=== PATIENT | male | born 1955 ===

== ENCOUNTER 2017-07-21 03:04 | Emergency (ER) | payer MEDICAID ==
[2017-07-21 03:04] VITALS: BMI 34.5
[2017-07-21 03:33] VITALS: BP 141/66; PULSE 82; RESP 18; TEMP 98.3; O2SAT 98
--- NOTE | 2017-07-21 05:03 | ED PDOC ---
HPI: Psych/Substance Abuse Time Seen by Provider: 07/21/17 04:36 Chief Complaint (Nursing): Psychiatric Evaluation Chief Complaint (Provider): Psych Eval History Per: Patient, EMS History/Exam Limitations: no limitations Current Symptoms Are (Timing): Still Present Additional Complaint(s): 61 yo male, brought in by EMS, with a history of depression, hypertension, diabetes, and elevated cholesterol, presents to the ED for a psych evaluation of possible suicidal ideation. According to the patient, he was caught cheating on his last August, and since then they have had an estranged relationship although they still reside in the same home. Patient admits that when he was first caught, he attempted to to cut his throat, but after he made a small cut he was too scared to go through with the suicide attempt. He was then evaluated at that time and was put on medication for his depression. Today, his approached him stating that she wanted a divorce because she "didn't want to live like this anymore". The patient claims he told his that he understood , and went to get his back buck swamper off the wall, but the string broke. This then prompted him to get a knife to fix it, but his assumed that he was trying to harm himself due tot the fact that she just told him that she wants a divorce. Police were called to the seen and brought the patient here to the ED. He denies any suicidal or homicidal ideation, as wells as any auditory or visual hallucinations. Currently, the patient has no suicidal plan and physical complaints. PMD: Bobby Calloway Past Medical History Reviewed: Historical Data, Nursing Documentation, Vital Signs Vital Signs: Last Vital Signs Temp 98.3 F 07/21/17 03:17 Pulse 82 07/21/17 03:17 Resp 18 07/21/17 03:17 BP 141/66 07/21/17 03:17 Pulse Ox 98 07/21/17 03:17 - Medical History PMH: Cardia Arrhythmia, Depression, Diabetes, HTN, Hypercholesterolemia Denies: Chronic Kidney Disease - Surgical History Other surgeries: arthroscopy of the left shoulder - Family History Family History: States: Unknown Family Hx - Living Arrangements Living Arrangements: With Family - Social History Current smoker - smoking cessation education provided: No Ex-Smoker (has not smoked in the last 12 months): No Alcohol: None Drugs: Denies - Home Medications Home Medications: Ambulatory Orders Medication Instructions Recorded Aspirin [Aspirin Low Dose] 81 mg PO DAILY 12/07/14 Lisinopril 20 mg PO DAILY 12/07/14 Metoprolol Succinate [Toprol XL] 25 mg PO DAILY 12/07/14 Clopidogrel [Plavix] 75 mg PO DAILY #30 tab 05/16/16 Insulin Aspart, Recombinant 15 unit SC TIDAC #20 vial 05/16/16 [Novolog] Insulin Glargine, Recombina 15 unit SC HS #10 vial 05/16/16 [Lantus] - Allergies Allergies/Adverse Reactions: Allergies Allergy/AdvReac Type Severity Reaction Status Date / Time No Known Allergies Allergy Verified 07/21/17 03:16 Review of Systems ROS Statement: Except As Marked, All Systems Reviewed And Found Negative Constitutional: Negative for: Fever Psych: Positive for: Depression. Negative for: Suicidal ideation Physical Exam - Reviewed Nursing Documentation Reviewed: Yes Vital Signs Reviewed: Yes - Physical Exam Appears: Positive for: Well (cooperative, cheerful), Non-toxic, No Acute Distress Head Exam: Positive for: ATRAUMATIC, NORMOCEPHALIC Skin: Positive for: Normal Color, Warm, DRY Eye Exam: Positive for: EOMI, PERRL ENT: Positive for: Other (mucus membranes moist) Neck: Positive for: Painless ROM, Supple Cardiovascular/Chest: Positive for: Regular Rate, Rhythm. Negative for: Murmur Respiratory: Positive for: Normal Breath Sounds. Negative for: Decreased Breath Sounds, Accessory Muscle Use, Respiratory Distress Gastrointestinal/Abdominal: Positive for: Bowel Sounds (active x4), Soft. Negative for: Tenderness, Distended, Guarding Extremity: Positive for: Normal ROM. Negative for: Deformity Neurologic/Psych: Positive for: Alert, Oriented (x3), Mood/Affect (calm), Gait ( steady in ED). Negative for: Aphasia, Facial Droop - ECG O2 Sat by Pulse Oximetry: 98 (RA) Pulse Ox Interpretation: Normal Medical Decision Making Medical Decision Making: Time: --04:37 Impression: --Psych Eval, depression Plan: --crisis eval --1:1 observation Reassess --[id number] Per crisis evaluation, patient is stable for discharge with the diagnosis of Adjustment Disorder per Dr Stern. On exam, patient remains AAOx3, in no acute distress. Lungs clear to auscultation, cardiac RRR, abdomen soft, non-tender, repeat neuro exam shows no focal findings. Patient offers no complaints at this time. VSS. Lab/Diagnostic results d/w the patient in great detail. Diagnosis of adjustment disorder d/w the patient. Based on history, exam and diagnostic results, plan will be for outpatient follow up. Patient instructed to follow-up with pmd / referral provided / the clinic in 1- 2 days without fail. Return to the emergency room at any time for any new or worsening symptoms. Patient states he fully agrees with and understands discharge instructions. States that he agrees with the plan and disposition. Verbalized and repeated discharge instructions and plan. I have given the patient opportunity to ask any additional questions. Scribe Attestation: Documented by Martin Winchester acting as a scribe for BRENDA Humphries. Provider Attestation: All medical record entries made by the Scribe were at my direction and personally dictated by me. I have reviewed the chart and agree that the record accurately reflects my personal performance of the history, physical exam, medical decision making, and the department course for this patient. I have also personally directed, reviewed, and agree with the discharge instructions and disposition. Disposition - Clinical Impression Clinical Impression: Adjustment disorder - Patient ED Disposition Is Patient to be Admitted: No Counseled Patient/Family Regarding: Diagnosis - Disposition Referrals: Bobby Calloway MD [Family Provider] - Disposition: Routine/Home Disposition Time: 06:40 Condition: STABLE Additional Instructions: FOLLOW UP WITH PMD IN 1-2 DAYS FOR FURTHER EVALUATION. RETURN TO ED WITH ANY NEW OR WORSENING SYMPTOMS. Instructions: Adjustment Disorder Forms: [employer] (Tajik) Print Language: CHINESE - POA Present On Arrival: None
== END 2017-07-21 07:00 | disposition home or self-care (01) ==
LOC: H.ER 03:04
DX: F43.20 Adjustment disorder, unspecified (principal); E11.9 Type 2 diabetes mellitus without complications; Z79.4 Long term (current) use of insulin